=== PATIENT | male | born 1960 ===

== ENCOUNTER 2019-01-11 11:31 | Emergency (ER) | payer SELFPAY ==
[2019-01-11 11:39] VITALS: BMI 27.9
[2019-01-11] MEDS ORDERED: Iohexol 240 (50 ml) PO STA (12:32)
--- NOTE | 2019-01-11 12:49 | C.PDOC ---
History Of Present Illness 58 year old male presents to the ED with complaint of intermittent left lower quadrant abdominal pain for the past month. He states that the pain worsened last night. Patient states that the pain radiates to his back. Patient states that it feels like a "ball is inside." He also states that when he urinates it doesn't feel like all the urine comes out. Patient has a PMHx of slightly high cholesterol. Patient denies nausea, vomiting, diarrhea, and fever. Time Seen by Provider: 01/11/19 11:43 Chief Complaint (Nursing): Abdominal Pain History Per: Patient History/Exam Limitations: no limitations Onset/Duration Of Symptoms: Worse Since, Other (1 month) Current Symptoms Are (Timing): Still Present Location Of Pain/Discomfort: LLQ Radiation Of Pain To:: Back Quality Of Discomfort: "Pain", Other (feels like a ball inside) Associated Symptoms: Back Pain, Urinary Symptoms (difficulty urinating). denies: Fever, Nausea, Vomiting, Diarrhea Exacerbating Factors: None Alleviating Factors: None Past Medical History Reviewed: Historical Data, Nursing Documentation, Vital Signs Vital Signs: Last Vital Signs Temp 97.6 F 01/11/19 11:40 Pulse 71 01/11/19 11:40 Resp 18 01/11/19 11:40 BP 145/79 01/11/19 11:40 Pulse Ox 97 01/11/19 11:40 - Medical History PMH: Hypercholesterolemia Surgical History: No Surg Hx Family History: States: Unknown Family Hx - Social History Hx Alcohol Use: No Hx Substance Use: No - Immunization History Hx Tetanus Toxoid Vaccination: No Hx Influenza Vaccination: No Hx Pneumococcal Vaccination: No Review Of Systems Constitutional: Negative for: Fever Gastrointestinal: Positive for: Abdominal Pain (left lower quadrant). Negative for: Nausea, Vomiting, Diarrhea Genitourinary: Positive for: Other (difficulty urinating) Physical Exam - Physical Exam Appears: Well, Non-toxic, No Acute Distress Skin: Normal Color, Dry Head: Atraumatic, Normacephalic Neck: Normal ROM, Supple Chest: Symmetrical, No Deformity Cardiovascular: Rhythm Regular, No Murmur Respiratory: No Accessory Muscle Use, No Rales, No Rhonchi, No Wheezing Gastrointestinal/Abdominal: Soft, Tenderness (mild left lower quadrant tenderness) Back: No CVA Tenderness Extremity: Capillary Refill (<2 seconds) Neurological/Psych: Oriented x3, Normal Speech, Normal Cognition ED Course And Treatment - Laboratory Results Result Diagrams: 01/11/19 13:04 01/11/19 13:04 O2 Sat by Pulse Oximetry: 97 (in RA) - CT Scan/US Abdomen/Pelvis CT Other Rad Studies (CT/US): Interpreted By Me, Read By Radiologist CT/US Interpretation: IMPRESSION: 3 mm right middle lobe nodule. 6 mm right lower lobe nodule. If indicated, recommend correlation with follow-up chest CT for further assessment. Follow-up as indicated. 1.4 x 1.0 cm right adrenal gland nodule with associated peripheral calcification;may be the result of prior hemorrhage or infectious/inflammatory process. Too small to characterize bilateral renal hypodensities, statistically likely cysts. Enlarged prostate gland. Recommend correlation with PSA. Additional findings as above. Medical Decision Making Medical Decision Making: Plan: Abdomen/Pelvis CT ordered for patient Labs ordered with CBC, CMP, urine culture, and UA Patient given pepcid, toradol, and zofran Disposition - Disposition Referrals: Rufina Manley MD [Medical Doctor] - Disposition: HOME/ ROUTINE Disposition Time: 17:56 Condition: IMPROVED Additional Instructions: Follow up with the medical doctor within 1-2 days. Return if worsened. 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 (Esha Urbina) - Scribe Statement The provider has reviewed the documentation as recorded by the Scribe (Esha Urbina) All medical record entries made by the Scribe were at my direction and personally dictated by me. I have reviewed the chart and agree that the record accurately reflects my personal performance of the history, physical exam, medical decision making, and the department course for this patient. I have also personally directed, reviewed, and agree with the discharge instructions and disposition.
[2019-01-11] MEDS ORDERED: Iohexol 240 (50 ml) ONE (12:55)
[2019-01-11 13:35] LABS: BASO % 0.5 % (0.0-2.0); EOS # 0.1 K/uL (0.0-0.7); EOS % 1.5 % (0.0-4.0); HEMOGLOBIN 16.7 g/dL (12.0-18.0); LYMPH # 1.8 K/uL (1.0-4.3); LYMPH % 38.6 % (20.0-40.0); MEAN CELL VOLUME 87.4 fL (80.0-94.0); MEAN CORPUSCULAR HEMOGLOBIN 29.7 pg (27.0-31.0); MEAN CORPUSCULAR HGB CONC 33.9 g/dL (33.0-37.0); MEAN PLATELET VOLUME 9.4 fL (7.2-11.7); MONO # 0.3 K/uL (0.0-0.8); MONO % 6.2 % (0.0-10.0); NEUT # 2.5 K/uL (1.8-7.0); NEUT % 53.2 % (50.0-75.0); NRBC % 0.2 % (0.0-2.0); RBC 5.64 Mil/uL (4.40-5.90); RED CELL DISTRIBUTION WIDTH 14.5 % (11.5-14.5); WHITE BLOOD COUNT 4.7 K/uL (4.8-10.8)
[2019-01-11 13:48] LABS: URINE BILIRUBIN NEGATIVE (NEGATIVE); URINE BLOOD NEGATIVE (NEGATIVE); URINE CLARITY Clear (Clear); URINE COLOR YELLOW (YELLOW); URINE GLUCOSE (UA) NEGATIVE (Normal); URINE LEUKOCYTE ESTERASE NEGATIVE Leu/uL (Negative); URINE PROTEIN NEGATIVE (NEGATIVE); URINE UROBILINOGEN 0.2 mg/dL (0.2-1.0)
[2019-01-11 13:49] LABS: ALB/GLOB RATIO 1.4 (1.0-2.1); ALBUMIN 4.5 g/dL (3.5-5.0); CALCIUM 9.6 mg/dl (8.6-10.4)
[2019-01-11] MEDS ORDERED: Iodixanol 320 MG/ML 100 ML BOTTLE IV ONE (15:42)
[2019-01-11 16:55] VITALS: TEMP 98.2
--- NOTE | 2019-01-11 17:21 | CT ---
PROCEDURE: CT Abdomen and Pelvis with oral and IV contrast. HISTORY: abd pain COMPARISON: None available. TECHNIQUE: Contiguous axial images of the abdomen and pelvis. Oral and IV contrast was administered. Coronal and Sagittal reformats generated and reviewed. Contrast dose: 100 mL Visipaque 320 Radiation dose: Total exam DLP = 783.45 mGy-cm. This CT exam was performed using one or more of the following dose reduction techniques: Automated exposure control, adjustment of the mA and/or kV according to patient size, and/or use of iterative reconstruction technique. FINDINGS: LOWER THORAX: No visible consolidation, pleural effusion, or pneumothorax. 3 mm right middle lobe nodule. 6 mm right lower lobe nodule. Small hiatal hernia. LIVER: Hypoattenuation of the liver compatible with hepatic steatosis. GALLBLADDER AND BILE DUCTS: Unremarkable. PANCREAS: Unremarkable. SPLEEN: Unremarkable. ADRENALS: 1.4 x 1.0 cm right adrenal gland nodule with associated peripheral calcification. The left adrenal gland appears unremarkable. KIDNEYS AND URETERS: The kidneys enhance symmetrically. No hydronephrosis or obstructing renal calculus. Too small to characterize 7 mm left renal hypodensity, statistically likely cyst. Too small to characterize 4 mm right renal hypodensity, statistically likely cyst. BLADDER: The urinary bladder appears unremarkable. REPRODUCTIVE: The prostate gland measures approximately 4.0 x 4.7 cm. APPENDIX: The appendix appears within normal limits of caliber. No secondary signs of acute appendicitis. BOWEL: The stomach is nondistended. The bowel loops appear within normal limits of caliber without evidence of intestinal obstruction. PERITONEUM: No significant free fluid. No definite free air. LYMPH NODES: No bulky lymphadenopathy identified. VASCULATURE: No aortic aneurysm. Scattered atherosclerotic calcifications. BONES: Mild degenerative changes. OTHER FINDINGS: None. IMPRESSION: 3 mm right middle lobe nodule. 6 mm right lower lobe nodule. If indicated, recommend correlation with follow-up chest CT for further assessment. Follow-up as indicated. 1.4 x 1.0 cm right adrenal gland nodule with associated peripheral calcification;may be the result of prior hemorrhage or infectious/inflammatory process. Too small to characterize bilateral renal hypodensities, statistically likely cysts. Enlarged prostate gland. Recommend correlation with PSA. Additional findings as above.
[2019-01-11 18:01] VITALS: BP 140/71; PULSE 68; RESP 18
[2019-01-11 18:36] VITALS: O2SAT 97
== END 2019-01-11 18:05 | disposition home or self-care (01) ==
LOC: C.ER 11:31
DX: R10.32 Left lower quadrant pain (principal); E78.00 Pure hypercholesterolemia, unspecified
CPT/HCPCS: 74177; 80053; 81001; 83690; 85025; 87086; 96374; 96375; 99285; J1885; J2405; Q9966; Q9967